=== PATIENT | female | born 1970 | race Caucasian/White ===

== ENCOUNTER 2020-01-01 14:25 | Emergency (ER) | payer BC ==
[2020-01-01 14:45] VITALS: TEMP 98.5
[2020-01-01] MEDS ORDERED: LORazepam 2 MG/ML INJ IV STA (14:46)
--- NOTE | 2020-01-01 15:18 | ED ---
General Adult HPI - General Chief complaint: Arrhythmia/Palpitations Stated complaint: palpitations Time Seen by Provider: 01/01/20 14:43 Source: patient, family, RN notes reviewed Mode of arrival: wheelchair Limitations: no limitations - History of Present Illness Initial comments: Patient is a pleasant 49-year-old female presenting to the emergency Department with anxiety and palpitations and paresthesias. Patient states she has been having anxiety and panic attacks since coronavirus became prevalent and quarantined. Patient has been on Xanax for 2 months and stopped 5 days ago. Patient has had increased anxiety over the past few days. Patient feels tingly in both arms and somewhat diffusely. Patient is also having palpitations. No thoughts of self-harm. - Related Data Previous Rx's Medication Instructions Recorded ALPRAZolam [Xanax] 0.5 mg PO Q8HR PRN #8 tablet 01/01/20 Allergies Allergy/AdvReac Type Severity Reaction Status Date / Time No Known Allergies Allergy Verified 01/01/20 14:33 Review of Systems ROS Statement: Those systems with pertinent positive or pertinent negative responses have been documented in the HPI. ROS Other: All systems not noted in ROS Statement are negative. Constitutional: Denies: fever Eyes: Denies: eye pain ENT: Denies: ear pain Respiratory: Denies: dyspnea Cardiovascular: Reports: palpitations. Denies: chest pain Endocrine: Denies: fatigue Gastrointestinal: Denies: abdominal pain Genitourinary: Denies: dysuria Musculoskeletal: Denies: back pain Skin: Denies: rash Neurological: Denies: weakness Past Medical History Past Medical History: No Reported History History of Any Multi-Drug Resistant Organisms: None Reported Past Surgical History: Appendectomy, Cholecystectomy, Hysterectomy Past Psychological History: Anxiety Smoking Status: Never smoker Past Alcohol Use History: Occasional Past Drug Use History: None Reported General Exam Limitations: no limitations General appearance: alert, in no apparent distress Head exam: Present: normocephalic Eye exam: Present: normal appearance Neck exam: Present: normal inspection Respiratory exam: Present: normal lung sounds bilaterally Cardiovascular Exam: Present: regular rate, normal rhythm Expanded Peripheral pulses: 2+: Radial (R), Radial (L), Dorsalis Pedis (R), Dorsalis Pedis (L) GI/Abdominal exam: Present: soft. Absent: tenderness Extremities exam: Present: normal inspection. Absent: pedal edema, calf tenderness Neurological exam: Present: alert. Absent: motor sensory deficit Psychiatric exam: Present: anxious Skin exam: Present: normal color Course Vital Signs 01/01/20 01/01/20 14:34 15:28 Temperature 98.5 F Pulse Rate 80 84 Respiratory 18 16 Rate Blood Pressure 138/79 120/77 O2 Sat by Pulse 100 100 Oximetry - Reevaluation(s) Reevaluation #1: 01/01/20 15:16 Patient feels significantly better following Ativan EKG Findings - EKG Comments: EKG Findings:: Normal sinus rhythm at 78 with sinus arrhythmia. AK 146. QRS 84. QT 390. QTC 444. Normal axis. Normal QRS. No acute ST change. Medical Decision Making - Lab Data Result diagrams: 01/01/20 14:41 01/01/20 14:41 Lab Results 01/01/20 01/01/20 Range/Units 14:41 14:41 WBC 8.9 (3.8-10.6) k/uL RBC 4.59 (3.80-5.40) m/uL Hgb 14.2 (11.4-16.0) gm/dL Hct 40.3 (34.0-46.0) % MCV 87.9 (80.0-100.0) fL MCH 31.0 (25.0-35.0) pg MCHC 35.2 (31.0-37.0) g/dL RDW 12.2 (11.5-15.5) % Plt Count 279 (150-450) k/uL Neutrophils % 63 % Lymphocytes % 30 % Monocytes % 5 % Eosinophils % 1 % Basophils % 0 % Neutrophils # 5.6 (1.3-7.7) k/uL Lymphocytes # 2.7 (1.0-4.8) k/uL Monocytes # 0.4 (0-1.0) k/uL Eosinophils # 0.1 (0-0.7) k/uL Basophils # 0.0 (0-0.2) k/uL Sodium 138 (137-145) mmol/L Potassium 3.5 (3.5-5.1) mmol/L Chloride 108 H (98-107) mmol/L Carbon Dioxide 20 L (22-30) mmol/L Anion Gap 10 mmol/L BUN 12 (7-17) mg/dL Creatinine 0.58 (0.52-1.04) mg/dL Est GFR (CKD-EPI)AfAm >90 (>60 ml/min/1.73 sqM) Est GFR (CKD-EPI)NonAf >90 (>60 ml/min/1.73 sqM) Glucose 114 H (74-99) mg/dL Calcium 9.6 (8.4-10.2) mg/dL Magnesium 1.9 (1.6-2.3) mg/dL Total Bilirubin 1.2 (0.2-1.3) mg/dL AST 21 (14-36) U/L ALT 15 (4-34) U/L Alkaline Phosphatase 51 (38-126) U/L Total Protein 6.9 (6.3-8.2) g/dL Albumin 4.2 (3.5-5.0) g/dL TSH 1.340 (0.465-4.680) mIU/L Free T4 0.98 (0.78-2.19) ng/dL Free T3 pg/mL 3.6 (2.8-5.3) pg/ml - Radiology Data Radiology results: image reviewed (Chest x-ray shows no acute process) Disposition Clinical Impression: Palpitations, Anxiety Disposition: HOME SELF-CARE Condition: Stable Instructions (If sedation given, give patient instructions): Heart Palpitations (ED), Anxiety (ED) Additional Instructions: Please follow-up with primary care physician in the next day or 2 for recheck. You will need to discuss medication options. Return for increased heart rate, worsening symptoms or other concerns. Additional number for primary care provider is also provided Prescription sent to the [facility] pharmacy in [place] Prescriptions: ALPRAZolam [Xanax] 0.5 mg PO Q8HR PRN #8 tablet PRN Reason: Anxiety Is patient prescribed a controlled substance at d/c from ED?: Yes When asked, does pt state using other controlled substances?: No If prescribed controlled substance>3 days was MAPS reviewed?: Prescribed <3 Days Referrals: Raleigh Diehl III, MD [STAFF PHYSICIAN] - 1-2 days Time of Disposition: 16:20
[2020-01-01 15:29] VITALS: BP 120/77; PULSE 84; RESP 16
[2020-01-01 15:45] LABS: African American GFR (CKD) >90 (>60 ml/min/1.73 sqM); Anion Gap 10 mmol/L; Blood Urea Nitrogen 12 mg/dL (7-17); Carbon Dioxide 20 mmol/L (22-30); Chloride 108 mmol/L (98-107); Glucose 114 mg/dL (74-99); Potassium 3.5 mmol/L (3.5-5.1); Sodium 138 mmol/L (137-145)
[2020-01-01 15:46] LABS: ALT 15 U/L (4-34); AST 21 U/L (14-36); Albumin 4.2 g/dL (3.5-5.0); Alkaline Phosphatase 51 U/L (38-126); Calcium 9.6 mg/dL (8.4-10.2); Magnesium 1.9 mg/dL (1.6-2.3); Non-African American GFR(CKD) >90 (>60 ml/min/1.73 sqM); Total Bilirubin 1.2 mg/dL (0.2-1.3); Total Protein 6.9 g/dL (6.3-8.2)
[2020-01-01 15:55] LABS: Basophils % (A) 0 %; Eosinophils # (A) 0.1 k/uL (0-0.7); Eosinophils % (A) 1 %; HCT 40.3 % (34.0-46.0); HGB 14.2 gm/dL (11.4-16.0); Lymphocytes # (A) 2.7 k/uL (1.0-4.8); Lymphocytes % (A) 30 %; MCHC 35.2 g/dL (31.0-37.0); MCV 87.9 fL (80.0-100.0); Mean Platelet Volume 7.8; Monocytes # (A) 0.4 k/uL (0-1.0); Monocytes % (A) 5 %; Neutrophils # (A) 5.6 k/uL (1.3-7.7); Neutrophils % (A) 63 %; Platelet Count 279 k/uL (150-450); RBC 4.59 m/uL (3.80-5.40); RDW 12.2 % (11.5-15.5); WBC 8.9 k/uL (3.8-10.6)
[2020-01-01 16:02] LABS: T4, Free (Free Thyroxine) 0.98 ng/dL (0.78-2.19)
--- NOTE | 2020-01-01 16:03 | XR ---
EXAMINATION TYPE: XR chest 2V DATE OF EXAM: 01/01/2020 COMPARISON: NONE HISTORY: Anxiety dysrhythmia and flutter. TECHNIQUE: Frontal and lateral views of the chest are obtained. FINDINGS: Overlying EKG leads are present. There is no focal air space opacity, pleural effusion, or pneumothorax seen. The cardiac silhouette size is within normal limits. The osseous structures are intact. Cholecystectomy clips are noted. IMPRESSION: No acute cardiopulmonary process.
[2020-01-01] MEDS ORDERED: ALPRAZolam 0.5 MG TAB PO STA (16:18)
== END 2020-01-01 16:33 | disposition home or self-care (01) ==
LOC: EC 14:25
DX: F41.9 Anxiety disorder, unspecified (principal); R00.2 Palpitations; R20.2 Paresthesia of skin; Z79.899 Other long term (current) drug therapy
CPT/HCPCS: 36415; 93005; 84439; 84481; 80053; 83735; 84443; 85025; 71046; 99285; 96374; J2060